=== PATIENT | female | born 1985 | race Caucasian/White ===

== ENCOUNTER 2017-01-18 21:56 | Emergency (ER) | payer OTHER ==
[~2017-01-18] VITALS: Ht 167.6 cm; Wt 104.3 kg
[2017-01-18] MEDS ORDERED: DULO30CA2 PO (22:20)
[2017-01-18] MEDS ORDERED: LORA1TAB PO (22:20)
[2017-01-18] MEDS ORDERED: VORT20TA PO (22:20)
[2017-01-18] MEDS ORDERED: MOME13HF IH (22:20)
[2017-01-19] MEDS ORDERED: IPRATROPIUM BROMIDE 0.5 MG/2.5 ML NEBU NEB ONE
[2017-01-19] MEDS ORDERED: methylPREDNISolone SOD SUCC 125 MG/2 ML VIAL IV ONE
[2017-01-19] MEDS ORDERED: ALBUTEROL SULFATE 2.5 MG/3 ML NEBU NEB ONE
[2017-01-19 00:21] LABS: CARBON DIOXIDE 28 mmol/L (21-32); CHLORIDE 104 mmol/L (98-107); CREATININE 1.1 mg/dL (0.6-1.3); GLUCOSE 101 mg/dL (74-106); POTASSIUM 3.9 mmol/L (3.5-5.1); UREA NITROGEN, BLOOD 15 mg/dL (7-18)
[2017-01-19] MEDS ORDERED: methylPREDNISolone SOD SUCC 125 MG/2 ML VIAL ONE (00:22)
[2017-01-19] MEDS ORDERED: IPRATROPIUM BROMIDE 0.5 MG/2.5 ML NEBU ONE (00:24)
[2017-01-19] MEDS ORDERED: ALBUTEROL SULFATE 2.5 MG/ 0.5 ML NEBU ONE (00:24)
[2017-01-19 00:25] LABS: BASOPHILS % (AUTO) 0.6 % (0.0-2.0); EOSINOPHILS # (AUTO) 0.2 K/uL (0.0-0.7); EOSINOPHILS % (AUTO) 2.8 % (0.0-7.0); HEMATOCRIT 38.3 % (37-47); HEMOGLOBIN 13.1 G/DL (12.0-16.0); LYMPHOCYTES # (AUTO) 2.7 K/UL (0.8-4.8); LYMPHOCYTES % (AUTO) 33.7 % (20.5-51.5); MEAN CORPUSCULAR HEMOGLOBIN 28.6 UUG (27.0-31.0); MEAN CORPUSCULAR HGB CONC 34 g/dL (32.0-37.0); MEAN CORPUSCULAR VOLUME 83.5 FL (81.0-99.0); MONOCYTES # (AUTO) 0.6 K/UL (0.1-1.30); MONOCYTES % (AUTO) 7.9 % (0.0-11.0); NEUTROPHILS # (AUTO) 4.5 K/UL (1.8-8.9); PLATELET COUNT (AUTO) 248 K/UL (150-450); RED BLOOD CELL COUNT(AUTO) 4.59 MIL/UL (4.2-5.4)
[2017-01-19 00:34] LABS: ALANINE AMINOTRANSFERASE 32 U/L (14-59); ALKALINE PHOSPHATASE 56 U/L (50-136); ASPARTATE AMINOTRANSFERASE 17 U/L (15-37); BILIRUBIN,DIRECT < 0.1 mg/dL (0.0-0.2); BILIRUBIN,TOTAL 0.2 mg/dL (0.2-1.0); TOTAL PROTEIN, SERUM 6.7 g/dL (6.4-8.2)
--- NOTE | 2017-01-19 01:34 | NUR ---
Patient discharged to home in stable conditon. Written and verbal after care instructions given. Patient verbalizes understanding of instructions.
== END 2017-01-19 01:35 | disposition home or self-care (01) ==
LOC: ER 21:57
DX: J45.909 Unspecified asthma, uncomplicated (principal); K21.9 Gastro-esophageal reflux disease without esophagitis; Z88.0 Allergy status to penicillin
CPT/HCPCS: 36415; 71010; 80048; 80076; 83880; 84484; 84703; 85025; 94640; 96374; 99285; A4663; J2930; J3590; 70030-TC

== ENCOUNTER 2017-01-24 22:30 | Inpatient (IN) | payer OTHER ==
[~2017-01-24] VITALS: Ht 167.6 cm; Wt 110.3 kg
[~2017-01-24 22:30] MED LIST: DULO30CA2 PO; LORA1TAB PO; MOME13HF IH; VORT20TA PO
--- NOTE | 2017-01-24 22:45 | NUR ---
PATIENT WALKED INTO ER. WITH C/O COUGH AND SOB. O2 SAT 97% ON RA. PATIENT IS ABLE TO SPEAK IN FULL SENTENCES. PATIENT ALBUTEROL INHALER AT HOME.
--- NOTE | 2017-01-24 23:09 | NUR ---
DR. LOBATO AT BEDSIDE FOR MSE.
[2017-01-24] MEDS ORDERED: IPRATROPIUM BROMIDE 0.5 MG/2.5 ML NEBU NEB ONE (23:15)
[2017-01-24] MEDS ORDERED: ALBUTEROL SULFATE 2.5 MG/3 ML NEBU NEB ONE (23:15)
[2017-01-24] MEDS ORDERED: methylPREDNISolone SOD SUCC 125 MG/2 ML VIAL IV ONE (23:15)
[2017-01-24] MEDS ORDERED: IV NORMAL SALINE 1000 ML BAG IV ONE (23:15)
[2017-01-24] MEDS ORDERED: IPRATROPIUM BROMIDE 0.5 MG/2.5 ML NEBU ONE (23:35)
[2017-01-24] MEDS ORDERED: ALBUTEROL SULFATE 2.5 MG/ 0.5 ML NEBU ONE (23:36)
[2017-01-24 23:42] LABS: BASOPHILS # (AUTO) 0.1 K/uL (0.0-8.0); BASOPHILS % (AUTO) 0.6 % (0.0-2.0); EOSINOPHILS % (AUTO) 0.1 % (0.0-7.0); HEMATOCRIT 39.4 % (37-47); HEMOGLOBIN 13.4 G/DL (12.0-16.0); LYMPHOCYTES # (AUTO) 2.2 K/UL (0.8-4.8); LYMPHOCYTES % (AUTO) 15.8 % (20.5-51.5); MEAN CORPUSCULAR HEMOGLOBIN 29.2 UUG (27.0-31.0); MEAN CORPUSCULAR HGB CONC 34 g/dL (32.0-37.0); MEAN CORPUSCULAR VOLUME 85.6 FL (81.0-99.0); MONOCYTES # (AUTO) 0.6 K/UL (0.1-1.30); MONOCYTES % (AUTO) 4.4 % (0.0-11.0); NEUTROPHILS # (AUTO) 10.9 K/UL (1.8-8.9); NEUTROPHILS % (AUTO) 79.1 % (38.5-71.5); PLATELET COUNT (AUTO) 276 K/UL (150-450); WHITE BLOOD COUNT (AUTO) 13.8 K/UL (4.0-11.2)
[2017-01-24 23:47] LABS: CREATININE 0.9 mg/dL (0.6-1.3); POTASSIUM 4.1 mmol/L (3.5-5.1)
[2017-01-24] MEDS ORDERED: methylPREDNISolone SOD SUCC 125 MG/2 ML VIAL ONE (23:47)
[2017-01-25] LABS: BILIRUBIN,DIRECT 0.1 mg/dL (0.0-0.2); BILIRUBIN,TOTAL 0.3 mg/dL (0.2-1.0); TOTAL PROTEIN, SERUM 6.9 g/dL (6.4-8.2)
[2017-01-25] MEDS ORDERED: ALBUTEROL SULFATE 2.5 MG/3 ML NEBU NEB ONE (00:15)
[2017-01-25] MEDS ORDERED: IPRATROPIUM BROMIDE 0.5 MG/2.5 ML NEBU NEB ONE (00:15)
[2017-01-25] MEDS ORDERED: ALBUTEROL SULFATE 2.5 MG/3 ML NEBU ONE ×2 (00:34→05:00)
[2017-01-25] MEDS ORDERED: ALBUTEROL SULFATE 2.5 MG/ 0.5 ML NEBU ONE (00:34)
[2017-01-25] MEDS ORDERED: IPRATROPIUM BROMIDE 0.5 MG/2.5 ML NEBU ONE ×2 (00:34→04:59)
[2017-01-25] MEDS ORDERED: Z GUARD REMEDY PASTE 57 GM TUBE TOP PRN (00:45)
[2017-01-25] MEDS ORDERED: MAGNESIUM HYDROXIDE 30 ML LIQUID UDC PO PRN (00:45)
[2017-01-25] MEDS ORDERED: AZITHROMYCIN 250 MG TABLET PO ONE (00:45)
[2017-01-25] MEDS ORDERED: ACETAMINOPHEN 325 MG TABLET PO PRN (00:45)
[2017-01-25] MEDS ORDERED: HYDROCODONE/APAP 5-325MG TABLET PO PRN (00:45)
[2017-01-25] MEDS ORDERED: ONDANSETRON 4 MG/2 ML VIAL IV PRN (00:45)
--- NOTE | 2017-01-25 01:24 | NUR ---
Pt. admitted to [facility] , under care of Dr. BARRIENTOS Belongs List completed.
[2017-01-25 01:40] VITALS: BP 136/82
--- NOTE | 2017-01-25 01:40 | NUR ---
received patient from ER via wheelchair. ushered patient safely to room. no acute distress noted. A&O x 4. ptnt c/o pain when coughing, slight sob. lungs sounds, wheezing. ambulatory. skin intact. vital signs stable. o2 sat is 97% in room air. belongings list completed. oriented patient to room. instructed patient to use call light when in need of assistance. acknowledged understanding. safety initiated. call light within reach. will continue to monitor.
[2017-01-25] MEDS ORDERED: AZITHROMYCIN 250 MG TABLET ONE (02:11)
[2017-01-25] MEDS: ALBUTEROL SULFATE 2.5 MG/3 ML NEBU NEB SCH ×6 (04:45→22:38)
[2017-01-25] MEDS: IPRATROPIUM BROMIDE 0.5 MG/2.5 ML NEBU NEB SCH ×6 (04:45→22:38)
--- NOTE | 2017-01-25 06:02 | NUR ---
NO CHANGES T/O SHIFT. SLEPT T/O SHIFT. NO C/O SOB. C/O PAIN WHEN COUGHING. BREATHING TX ORDERED. VITAL SIGNS STABLE. SAFETY AND COMFORT MEASURES MAINTAINED T/O SHIFT. ALL NEEDS MET.
[2017-01-25 06:33] VITALS: BP 119/63
--- NOTE | 2017-01-25 08:00 | NUR ---
AWAKE ALERT COOPERATE WELL NO SOB OR COUGHING AT THIS TIME RESTING WITH CALL LIGHT IN REACH HL IN PLACE RAC #20 PO FLD FELICIA WELL
[2017-01-25] MEDS: DULOXETINE 30 MG CAPSULE.DR PO SCH (08:30)
[2017-01-25] MEDS: methylPREDNISolone SOD SUCC 40 MG/ML VIAL IV SCH ×2 (08:31→17:49)
[2017-01-25 11:48] VITALS: BP 145/78
[2017-01-25 14:00] VITALS: BP 139/81
--- NOTE | 2017-01-25 14:30 | NUR ---
C/O OF ANXIETY /TREMOR OF HAND ATIVAN PO PRN GIVEN ORDER VS STABLE
[2017-01-25] MEDS: LORAZEPAM 1 MG TABLET PO PRN (14:32)
[2017-01-25 15:40] VITALS: BP 122/68
--- NOTE | 2017-01-25 18:00 | NUR ---
STABLE CONDITION NO ACUTE DISTRESS PAIN UNDER CONTROL SAFETY MEASURE PROVIDED CALL ASCENCIO IN REACH
[2017-01-25 19:30] VITALS: BP 141/83
--- NOTE | 2017-01-25 19:30 | NUR ---
RECEIVED SHIFT REPORT FROM NURSE IN PREVIOUS SHIFT. PATIENT IS IN STABLE CONDITION, NO SIGNS/SYMPTOMS OF DISTRESS. PATIENT JUST RECEIVED BREATHING TREATMENT. PATIENT DOES NOT PRESENT ANY CONGESTED COUGHING AT THIS TIME. NO PAIN EXPRESSED BY PATIENT. BED IN LOCKED/LOW POSITION WITH SIDE RAILS UP X2. ALERT/ORIENTED AND AMBULATORY. CALL LIGHT WITHIN REACH. SAFETY AND COMFORT WILL BE PROVIDED THROUGHOUT SHIFT.
[2017-01-25] MEDS ORDERED: TEMAZEPAM 15 MG CAPSULE PO PRN (21:15)
[2017-01-25] MEDS ORDERED: ALBUTEROL SULFATE 2.5 MG/ 0.5 ML NEBU NEB PRN (23:15)
[2017-01-26] MEDS: IPRATROPIUM BROMIDE 0.5 MG/2.5 ML NEBU NEB SCH ×2 (02:40→07:52)
[2017-01-26 05:04] VITALS: BP 124/73
--- NOTE | 2017-01-26 06:26 | NUR ---
PATIENT SLEPT WELL THROUGHOUT THE NIGHT. SLEEP MEDICATION THAT WAS REQUESTED BY PATIENT AND ORDERED BY DOCTOR WAS NOT REQUESTED BY PATIENT. PATIENT IN STABLE CONDITION, NO S/S DISTRESS. VSS. BED IN LOCKED/LOW POSITION, SIDE RAILS UP, CALL LIGHT WITHIN REACH. SAFETY AND COMFORT PROVIDED THROUGHOUT SHIFT.
[2017-01-26 06:39] LABS: BASOPHILS % (AUTO) 0.2 % (0.0-2.0); HEMATOCRIT 39.7 % (37-47); HEMOGLOBIN 13.3 G/DL (12.0-16.0); LYMPHOCYTES # (AUTO) 1.5 K/UL (0.8-4.8); LYMPHOCYTES % (AUTO) 7.8 % (20.5-51.5); MEAN CORPUSCULAR HEMOGLOBIN 28.5 UUG (27.0-31.0); MEAN CORPUSCULAR HGB CONC 33 g/dL (32.0-37.0); MEAN CORPUSCULAR VOLUME 85.3 FL (81.0-99.0); MONOCYTES # (AUTO) 0.8 K/UL (0.1-1.30); MONOCYTES % (AUTO) 4.1 % (0.0-11.0); NEUTROPHILS % (AUTO) 87.9 % (38.5-71.5); PLATELET COUNT (AUTO) 270 K/UL (150-450); RED BLOOD CELL COUNT(AUTO) 4.66 MIL/UL (4.2-5.4); WHITE BLOOD COUNT (AUTO) 19.3 K/UL (4.0-11.2)
[2017-01-26 07:06] LABS: CREATININE 0.7 mg/dL (0.6-1.3); MAGNESIUM 2.1 mg/dL (1.8-2.4); POTASSIUM 4.1 mmol/L (3.5-5.1)
--- NOTE | 2017-01-26 08:00 | NUR ---
AWAKE COOPERATE NO SOB OR PAIN RESTING IN BED WITH CALL LIGHT IN REACH INSTRUCTION TO CALL WHEN NEEDED
[2017-01-26] MEDS ORDERED: FAMOTIDINE 20 MG TABLET PO SCH (09:00)
[2017-01-26] MEDS ORDERED: methylPREDNISolone SOD SUCC 40 MG/ML VIAL IV SCH (09:00)
[2017-01-26] MEDS ORDERED: AZITHROMYCIN 250 MG TABLET PO SCH (09:00)
[2017-01-26] MEDS: DULOXETINE 30 MG CAPSULE.DR PO SCH (09:41)
[2017-01-26] MEDS ORDERED: VORTIOXETINE 20 MG PO SCH (11:00)
[2017-01-26 11:06] VITALS: BP 127/84
[2017-01-26] MEDS: ALBUTEROL SULFATE 2.5 MG/ 0.5 ML NEBU NEB PRN ×3 (11:15→18:36)
--- NOTE | 2017-01-26 12:00 | NUR ---
DR HOOK AND DR MALCOLM SEE PATIENT TODAY NO NEW ORDER
[2017-01-26] MEDS: LORAZEPAM 1 MG TABLET PO PRN (13:42)
[2017-01-26] MEDS ORDERED: METH4TAB3 PO (14:42)
[2017-01-26] MEDS ORDERED: AZIT250T6 PO (14:42)
[2017-01-26] MEDS ORDERED: HYDR-3326 PO (14:42)
--- NOTE | 2017-01-26 15:00 | NUR ---
OK TO D/C HOME TODAY PRECRIPTION GIVEN TO PATIENT AND PHAMACY EXPLAINED ALL HOME MEDICINE PRIOR D/C HOME TODAY REMIND TO F/U WITH OWN PMD / AND CONTINUE HOME MEDICINE ORDER ,VERBALIZES UNDERSTAND AND SIGNS D/C SHEET HL DISCONTINUE PRIOR D/C HOME EDUCATION PK GIVEN
[2017-01-26 15:41] VITALS: BP 135/79
--- NOTE | 2017-01-26 17:00 | NUR ---
STABLE CONDITION NO ACUTE DISTRESS NO SOB PAIN UNDER CONTROL SAFETY MEASURE PROVIDED CALL ASCENCIO IN REACH
--- NOTE | 2017-01-26 19:30 | NUR ---
RECEIVED PT IN BED, ASLEEP. BREATHING UNLABORED. IN NO ACUTE SIGNS OF DISTRESS. TO BE DISCHARGED HOME.
--- NOTE | 2017-01-26 20:11 | NUR ---
LEFT ON STABLE CONDITION. ESCORTED BY VARNISH FINISHER TO THE LOBBY.
== END 2017-01-26 19:00 | disposition home or self-care (01) | DRG 144 ==
LOC: ER 22:30 → MED 01-25 01:13
PROVIDERS: ADMIT Family Medicine; ATTEND Family Medicine
DX: J20.8 Acute bronchitis due to other specified organisms (principal); J45.901 Unspecified asthma with (acute) exacerbation; E66.01 Morbid (severe) obesity due to excess calories; E78.5 Hyperlipidemia, unspecified; K21.9 Gastro-esophageal reflux disease without esophagitis; R73.9 Hyperglycemia, unspecified; Z68.39 Body mass index [BMI] 39.0-39.9, adult
CPT/HCPCS: 36415; 70030-TC; 71010; 83605; 83735; 84100; 85025; 87040; 87070; 94640; 94664; A4663; J2920; J2930; J3590; J7030; Q0144

== ENCOUNTER 2017-03-08 21:56 | Emergency (ER) | payer OTHER ==
[~2017-03-08] VITALS: Ht 167.6 cm; Wt 102.1 kg
[~2017-03-08 21:56] MED LIST changes: +AZIT250T6 PO; +HYDR-3326 PO; +METH4TAB3 PO
--- NOTE | 2017-03-08 23:02 | NUR ---
RECEIIVED PT [id number], AMBULATORY, IN NO DISTRESS,PT HERE TO MED REFILL, DENIES SI, PLACEDIN BED, BED IN LOWEST POSITION, LOCKED, HOB UP, SR UP X2 FOR SAFETY, CB WITHIN REACH, WILL CONTINUE WITH POC
[2017-03-08 23:28] VITALS: BP 142/56
--- NOTE | 2017-03-08 23:30 | NUR ---
PT IN NO DISTRESS, PT ADVISED TO F/U WITH PMD OR RTURN TO ER FOR WORSENING OF SYMPTOMS, VERBALIZES UNDERSTANDING, RX GIVEN TO PT
== END 2017-03-08 23:37 | disposition home or self-care (01) ==
LOC: ER 21:57
DX: Z76.0 Encounter for issue of repeat prescription (principal); F32.9 Major depressive disorder, single episode, unspecified; F41.9 Anxiety disorder, unspecified; J45.909 Unspecified asthma, uncomplicated; K21.9 Gastro-esophageal reflux disease without esophagitis; Z88.0 Allergy status to penicillin
CPT/HCPCS: A4663

== ENCOUNTER 2017-05-07 02:05 | Emergency (ER) | payer OTHER ==
[~2017-05-07] VITALS: Ht 167.6 cm; Wt 111.1 kg
[~2017-05-07 02:05] MED LIST changes: +AZIT250T13 PO; -AZIT250T6 PO
[2017-05-07] MEDS ORDERED: SULFAMETH/TRIMETH 800/160 MG TABLET PO ONE (02:45)
[2017-05-07] MEDS ORDERED: TDAP DIPH,PERTUSS,TET VAC/PF 0.5 ML DISP.SYRIN IM ONE ×2 (02:45→03:00)
--- NOTE | 2017-05-07 02:51 | NUR ---
Patient discharged to home in stable conditon. Written and verbal after care instructions given. Patient verbalizes understanding of instructions. Instructed patient to return in 3 days if symptoms don't improve. Patient ambulated out of ER with steady gait. All belongings with patient.
[2017-05-07 02:53] VITALS: BP 152/74
[2017-05-07] MEDS ORDERED: SULFAMETH/TRIMETH 800/160 MG TABLET ONE (02:59)
== END 2017-05-07 02:54 | disposition home or self-care (01) ==
LOC: ER 02:13
DX: S51.811A Laceration without foreign body of right forearm, initial encounter (principal); Z23 Encounter for immunization; K21.9 Gastro-esophageal reflux disease without esophagitis; J45.909 Unspecified asthma, uncomplicated; Z88.0 Allergy status to penicillin; X58.XXXA Exposure to other specified factors, initial encounter; Y93.89 Activity, other specified; Y92.89 Other specified places as the place of occurrence of the external cause; Y99.8 Other external cause status
CPT/HCPCS: 90715; A4663

== ENCOUNTER 2018-12-20 15:33 | Inpatient (IN) | payer OTHER ==
[~2018-12-20] VITALS: Ht 167.6 cm; Wt 117.5 kg
[2018-12-20] MEDS ORDERED: ASPI-612 PO (20:34)
[2018-12-20] MEDS ORDERED: BACI3.5O23 TP (20:34)
[2018-12-20] MEDS ORDERED: OXYC10SY PO (20:34)
[2018-12-20] MEDS ORDERED: MOME13HF IH (20:34)
[2018-12-20] MEDS ORDERED: DOCU100C36 PO (20:34)
[2018-12-20] MEDS ORDERED: CYAN-51 PO (20:34)
[2018-12-20] MEDS ORDERED: METH500T6 PO (20:34)
[2018-12-20] MEDS ORDERED: LEVE500T9 PO (20:34)
[2018-12-20] MEDS ORDERED: ONDA4TAB11 PO (20:34)
[2018-12-20] MEDS ORDERED: ALBU8HFA4 INH (20:34)
[2018-12-20] MEDS ORDERED: OMEG-49 PO (20:34)
[2018-12-20] MEDS ORDERED: CHOL10002 PO (20:34)
[2018-12-20 20:37] VITALS: BP 126/75
[2018-12-20] MEDS ORDERED: ONDANSETRON ODT 4 MG TAB.RAPDIS SL PRN (21:15)
[2018-12-20] MEDS ORDERED: ALBUTEROL SULFATE 2.5 MG/3 ML NEBU NEB PRN (21:15)
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
[2018-12-20] MEDS: OXYCODONE HCL 5 MG TABLET PO PRN (22:46)
[2018-12-21] MEDS: OXYCODONE HCL 5 MG TABLET PO PRN ×4 (03:02→15:28)
[2018-12-21 04:52] VITALS: BP 117/64
[2018-12-21] MEDS: ACETAMINOPHEN 325 MG TABLET PO PRN ×3 (05:51→23:55)
--- NOTE | 2018-12-21 05:59 | NUR ---
PATIENT IS NOT SLEEPING WELL THROUGH OUT THE NIGHT D/T PAIN. PAIN MEDICATIONS- OXY ADMINISTERED Q4 PRN FOR PAIN MX. ACETAMINOPHEN 650 MG PRN ADMINISTERED AROUND 05:50 PM, NEXT OXYCODONE PO DUE AT 7 AM. NON PHARMACOLOGICAL PAIN MX DONE THROUGH THE SHIFT. REPOSITION PAIN Q2, ICE PACK APPLIED. V/S STABLE. NO SOB, SAFETY PRECAUTIONS MEASURED, ROUTINE ROOM CHECK DONE, CALL LIGHT IN REACH. WILL CONTINUE SAME PLAN OF CARE.
[2018-12-21 07:01] LABS: BASOPHILS % (AUTO) 0.6 % (0.0-2.0); EOSINOPHILS # (AUTO) 0.2 K/uL (0.0-0.7); EOSINOPHILS % (AUTO) 2.2 % (0.0-7.0); HEMATOCRIT 27.1 % (31.2-41.9); HEMOGLOBIN 9.5 g/dL (10.9-14.3); LYMPHOCYTES # (AUTO) 1.6 K/uL (20.0-40.0); LYMPHOCYTES % (AUTO) 20.1 % (20.5-51.5); MEAN CORPUSCULAR HEMOGLOBIN 30.5 uug (24.7-32.8); MEAN CORPUSCULAR HGB CONC 35 g/dL (32.3-35.6); MEAN CORPUSCULAR VOLUME 86.4 fL (75.5-95.3); MONOCYTES # (AUTO) 0.5 K/uL (2.0-10.0); MONOCYTES % (AUTO) 5.8 % (0.0-11.0); NEUTROPHILS # (AUTO) 5.8 K/uL (1.8-8.9); NEUTROPHILS % (AUTO) 71.3 % (38.5-71.5); PLATELET COUNT (AUTO) 245 K/uL (179-408); RED BLOOD CELL COUNT(AUTO) 3.13 MIL/uL (3.63-4.92); WHITE BLOOD COUNT (AUTO) 8.1 K/uL (3.8-11.8)
[2018-12-21] MEDS ORDERED: OXYCODONE HCL 5 MG TABLET PO PRN (07:15)
[2018-12-21 07:30] LABS: BILIRUBIN,TOTAL 0.6 mg/dL (0.2-1.0); CREATININE 0.6 mg/dL (0.6-1.3); MAGNESIUM 1.9 mg/dL (1.8-2.4); PHOSPHOROUS 4.2 mg/dL (2.5-4.9); POTASSIUM 4.2 mmol/L (3.5-5.1); TOTAL PROTEIN, SERUM 5.9 g/dL (6.4-8.2)
[2018-12-21 07:53] LABS: THYROID STIMULATING HORMONE 2.337 mIU/mL (0.358-3.740)
[2018-12-21] MEDS: FEXOFENADINE HCL 180 MG TABLET PO SCH (08:38)
[2018-12-21] MEDS: OMEGA-3 FATTY ACIDS/FISH OIL CAPSULE PO SCH (08:38)
[2018-12-21] MEDS: DOCUSATE SODIUM 100 MG CAPSULE PO SCH ×2 (08:38→16:42)
[2018-12-21] MEDS: LEVETIRACETAM 500 MG TABLET PO SCH ×2 (08:38→20:38)
[2018-12-21] MEDS: FAMOTIDINE 20 MG TABLET PO SCH (08:38)
[2018-12-21] MEDS: CYANOCOBALAMIN 1,000 MCG TABLET PO SCH (08:39)
[2018-12-21] MEDS: CHOLECALCIFEROL 1,000 UNIT TABLET PO SCH (08:40)
[2018-12-21] MEDS: ASPIRIN 325 MG TABLET PO SCH (08:41)
[2018-12-21] MEDS ORDERED: BACITRACIN OPHT OINT 3.5 GM TUBE EACHEYE SCH (09:00)
[2018-12-21] MEDS ORDERED: Medication Not On Formulary EA (Omega-3/Dha/Epa/Fish Oil (Fish Oil 1,000 Mg Softgel) 1 E PO SCH (09:00)
[2018-12-21] MEDS: FLUTICASONE/VILANTEROL 1 EACH BLST.W.DEV INH SCH (09:00)
[2018-12-21 09:34] VITALS: BP 120/61
[2018-12-21] MEDS: BACITRACIN ZINC OINT 15 GM TUBE TOP SCH ×2 (11:30→16:42)
--- NOTE | 2018-12-21 13:34 | NUR ---
WOUND CARE CONSULT: PT PRESENTS WITH DRY ABRASIONS, BRUISING, HEALING ABRASION TO RT KNEE AREA AND TO LEFT ARM, AND SURGICAL SITES FROM ORTHO SURGERY, PRESENT ON ADMISSION. PT IS CONTINENT AT THIS TIME AND IS INDEPENDENT WITH BED MOBILITY. RECOMMENDATIONS MADE FOR SKIN PROTECTION AND WOUND CARE. DISCUSSED WITH NURSING STAFF. DEFER TO ORTHO FOR SURGICAL SITES. SURGICAL DRESSINGS ARE DRY AND INTACT. PT TO FOLLOW UP WITH ORTHO SURGEON. WILL SEE PRN. CHESTER IN AGREEMENT WITH PLAN OF CARE. Addendum: 12/21/18 at 1337 by SEVERIANO CORTES RN Amended: Links added.
[2018-12-21 16:35] VITALS: BP 143/77
--- NOTE | 2018-12-21 18:29 | NUR ---
Patient in bed awake, A&O x 4 able to express needs. IN No acute distress. Vital signs taken and stable for patient. All due medications administered as ordered and scheduled. PRN pain medication of OXY IR 10mg PO PRN administered as ordered for pain of right knee and effective. Pt. noted with original dressing on right knee, no discharge noted. Dry and intact. Left arm skin treatment done as ordered and covered with dressing; intact and dry with no discharge noted. Patient visited by wound care nurse. Pt. is on PT services. Needs attended, safety measures in place, call light left at bed side and will continue with care.
--- NOTE | 2018-12-21 19:45 | NUR ---
Awake, in bed, complaint of tolerable pain at this time. Mother at bedside. Safety measure and fall precaution maintained. Continue care as planned.
[2018-12-21] MEDS: Z GUARD REMEDY PASTE 57 GM TUBE TOP SCH (20:38)
[2018-12-21] MEDS: OXYCODONE HCL 20 MG TAB.SR.12H PO SCH (20:38)
[2018-12-21 21:06] VITALS: BP 124/60
[2018-12-22] MEDS: OXYCODONE HCL 5 MG TABLET PO PRN ×3 (02:57→18:28)
[2018-12-22 05:07] VITALS: BP 103/55
--- NOTE | 2018-12-22 06:23 | NUR ---
Shift End Report: VS stable. Quite needy and demanding. Constantly calling. All needs attended and met. Medicated twice for pain with help. Cold compress applied to right knee to relieve pain/discomforts tolerated good. One person assist to the bathroom. No fall/injury reported. No significant event reported all night. Continue current rehab plan of care..
[2018-12-22] MEDS: CYANOCOBALAMIN 1,000 MCG TABLET PO SCH (08:35)
[2018-12-22] MEDS: ASPIRIN 325 MG TABLET PO SCH (08:36)
[2018-12-22] MEDS: OMEGA-3 FATTY ACIDS/FISH OIL CAPSULE PO SCH (08:36)
[2018-12-22] MEDS: CHOLECALCIFEROL 1,000 UNIT TABLET PO SCH (08:38)
[2018-12-22] MEDS: DOCUSATE SODIUM 100 MG CAPSULE PO SCH ×2 (08:39→17:36)
[2018-12-22] MEDS: FAMOTIDINE 20 MG TABLET PO SCH (08:39)
[2018-12-22] MEDS: FEXOFENADINE HCL 180 MG TABLET PO SCH (08:39)
[2018-12-22] MEDS: OXYCODONE HCL 20 MG TAB.SR.12H PO SCH ×2 (08:41→20:32)
[2018-12-22] MEDS: LEVETIRACETAM 500 MG TABLET PO SCH ×2 (08:41→20:32)
[2018-12-22] MEDS: FLUTICASONE/VILANTEROL 1 EACH BLST.W.DEV INH SCH ×2 (08:42→09:00)
[2018-12-22 08:47] VITALS: BP 102/56
[2018-12-22] MEDS: BACITRACIN ZINC OINT 15 GM TUBE TOP SCH ×2 (08:49→17:36)
[2018-12-22] MEDS: Z GUARD REMEDY PASTE 57 GM TUBE TOP PRN (08:51)
[2018-12-22] MEDS: Z GUARD REMEDY PASTE 57 GM TUBE TOP SCH ×2 (09:02→20:32)
[2018-12-22 17:12] VITALS: BP 125/70
--- NOTE | 2018-12-22 19:30 | NUR ---
Patient received in bed. Alert and oriented x 4. Family at bedside. No C/O sob or distress at this time. 8/10 pain stated at time of assessment. Will medicate for pain when able. Multiple bruises and wounds noted. 2+ pitting edema in right ankle. Ice on right leg. Side rails up bilaterally for safety. Call light and frequently used items within reach. Will continue to monitor.
--- NOTE | 2018-12-22 20:02 | NUR ---
Patient is A&O x 4, able to express needs. No acute distress noted. Skin warm and dry to touch. VS taken and stable. Due medications administered as ordered and scheduled. PRN pain medication of OXY IR 10mg PO PRN administered as ordered for pain of right knee and generalized pain. Pt. still noted with severral discoloration on body. Left hand wound treatment done during shift. Patient noted with soiled dressing after taking shower on right knee, reinforced dry dressing; No drainage, odor or bleeding noted. NO complains of pain at this time. All other wound dressings intact and dry. Needs met, safety measures in place, call light left at bed side. End of shift report given and will continue with care.
[2018-12-22] MEDS ORDERED: PATIENT MAY USE OWN MED- MD OK INH SCH (21:00)
[2018-12-22 21:45] VITALS: BP 120/57
[2018-12-22] MEDS: ACETAMINOPHEN 325 MG TABLET PO PRN (23:27)
[2018-12-23 06:03] VITALS: BP 96/52
[2018-12-23] MEDS: OXYCODONE HCL 5 MG TABLET PO PRN ×2 (06:08→14:11)
[2018-12-23 07:15] VITALS: BP 112/62
[2018-12-23] MEDS: FEXOFENADINE HCL 180 MG TABLET PO SCH (08:18)
[2018-12-23] MEDS: LEVETIRACETAM 500 MG TABLET PO SCH ×2 (08:18→21:08)
[2018-12-23] MEDS: CHOLECALCIFEROL 1,000 UNIT TABLET PO SCH (08:18)
[2018-12-23] MEDS: FAMOTIDINE 20 MG TABLET PO SCH (08:18)
[2018-12-23] MEDS: ASPIRIN 325 MG TABLET PO SCH (08:18)
[2018-12-23] MEDS: DOCUSATE SODIUM 100 MG CAPSULE PO SCH ×2 (08:18→17:17)
[2018-12-23] MEDS: OXYCODONE HCL 20 MG TAB.SR.12H PO SCH ×2 (08:19→21:11)
[2018-12-23] MEDS: OMEGA-3 FATTY ACIDS/FISH OIL CAPSULE PO SCH (08:19)
[2018-12-23] MEDS: FLUTICASONE/VILANTEROL 1 EACH BLST.W.DEV INH SCH (08:20)
[2018-12-23] MEDS: CYANOCOBALAMIN 1,000 MCG TABLET PO SCH (08:20)
[2018-12-23] MEDS: Z GUARD REMEDY PASTE 57 GM TUBE TOP SCH ×2 (08:21→21:14)
[2018-12-23] MEDS: BACITRACIN ZINC OINT 15 GM TUBE TOP SCH ×2 (08:21→17:17)
--- NOTE | 2018-12-23 09:48 | NUR ---
INDIVIDUALIZE PLAN OF CARE
--- NOTE | 2018-12-23 11:19 | NUR ---
INTERDISCIPLINARY TEAM CONFERENCE
--- NOTE | 2018-12-23 13:38 | NUR ---
WOUND CARE FOLLOW UP: PT SEEN FOR RE-EVALUATION OF LEFT ARM ABRASIONS ON REQUEST OF NURSING STAFF AND PT. ABRASIONS HEALING WELL AND PT REQUESTS DC OF XEROFORM DSG. RECOMMENDATIONS MADE FOR WOUND CARE AND SKIN PROTECTION. DISCUSSED WITH NURSING STAFF. WILL SEE PRN. CHESTER IN AGREEMENT WITH PLAN OF CARE. Addendum: 12/23/18 at 1340 by SEVERIANO CORTES RN Amended: Links added.
[2018-12-23] MEDS: ACETAMINOPHEN 325 MG TABLET PO PRN ×2 (13:49→23:59)
[2018-12-23 16:17] VITALS: BP 108/64
--- NOTE | 2018-12-23 17:52 | NUR ---
Patient continue therapy for ambulation and unsteady gait. Continue pain management prior to therapy and if needed. Complaint of right tibia swelling and pain. x-ray done with fracture result noted. MD aware. dressing change done. refuse to apply xeroform in the left arm wound. cleanse and applied bacitracin ointment, covered with surgical wound. healing well. Seen by wound nurse. will continue monitor
[2018-12-23 20:18] VITALS: BP 120/71
[2018-12-23] MEDS: Z GUARD REMEDY PASTE 57 GM TUBE TOP PRN (21:14)
[2018-12-23] MEDS: METHOCARBAMOL 500 MG TABLET PO PRN (22:10)
--- NOTE | 2018-12-24 03:25 | NUR ---
Patient received in bed, AAO x4, mother at bedside. Not in acute distress or SOB. C/O pain, scheduled and PRN Pain medication given as ordered, offers relief. Dressing to Left arm skin issue changed upon patient's request. Tolerated well. Safety measures maintained. Bed in low and lock position, alarm on, side rails up x2 for safety. Educated patient to use call light. Call light and frequently used items within reach. Will endorse to the AM shift nurse for continuity of care.
[2018-12-24] MEDS: OXYCODONE HCL 5 MG TABLET PO PRN ×2 (06:00→14:07)
[2018-12-24 06:16] VITALS: BP 113/64
[2018-12-24 08:00] VITALS: BP 108/65
[2018-12-24] MEDS: OMEGA-3 FATTY ACIDS/FISH OIL CAPSULE PO SCH (09:30)
[2018-12-24] MEDS: DOCUSATE SODIUM 100 MG CAPSULE PO SCH ×2 (09:30→16:07)
[2018-12-24] MEDS: FLUTICASONE/VILANTEROL 1 EACH BLST.W.DEV INH SCH (09:30)
[2018-12-24] MEDS: CHOLECALCIFEROL 1,000 UNIT TABLET PO SCH (09:31)
[2018-12-24] MEDS: FEXOFENADINE HCL 180 MG TABLET PO SCH (09:31)
[2018-12-24] MEDS: LEVETIRACETAM 500 MG TABLET PO SCH ×2 (09:31→21:26)
[2018-12-24] MEDS: CYANOCOBALAMIN 1,000 MCG TABLET PO SCH (09:31)
[2018-12-24] MEDS: Z GUARD REMEDY PASTE 57 GM TUBE TOP PRN (09:34)
[2018-12-24] MEDS: OXYCODONE HCL 20 MG TAB.SR.12H PO SCH ×2 (09:35→21:26)
[2018-12-24] MEDS: ASPIRIN 325 MG TABLET PO SCH (09:36)
[2018-12-24] MEDS: FAMOTIDINE 20 MG TABLET PO SCH (09:41)
[2018-12-24] MEDS: BACITRACIN ZINC OINT 15 GM TUBE TOP SCH ×2 (09:42→16:07)
[2018-12-24] MEDS: Z GUARD REMEDY PASTE 57 GM TUBE TOP SCH ×2 (09:51→20:35)
[2018-12-24 17:21] VITALS: BP 120/75
--- NOTE | 2018-12-24 19:30 | NUR ---
Patient received in bed. Alert and oriented x 4. Family at bedside. No C/O SOB or distress at this time. 8/10 pain stated at time of assessment. Patient requesting Tylenol. Ice in two places in right leg. Side rails up bilaterally for safety. Call light and frequently used items within reach. Will continue to monitor.
[2018-12-24] MEDS: ACETAMINOPHEN 325 MG TABLET PO PRN (20:34)
[2018-12-24 20:49] VITALS: BP 114/63
[2018-12-25 00:40] VITALS: BP 113/63
[2018-12-25] MEDS: OXYCODONE HCL 5 MG TABLET PO PRN (06:46)
[2018-12-25 08:00] VITALS: BP 114/54
[2018-12-25] MEDS: METHOCARBAMOL 500 MG TABLET PO PRN ×2 (08:02→22:58)
[2018-12-25] MEDS: DOCUSATE SODIUM 100 MG CAPSULE PO SCH ×2 (09:22→16:59)
[2018-12-25] MEDS: OMEGA-3 FATTY ACIDS/FISH OIL CAPSULE PO SCH (09:22)
[2018-12-25] MEDS: CHOLECALCIFEROL 1,000 UNIT TABLET PO SCH (09:22)
[2018-12-25] MEDS: FEXOFENADINE HCL 180 MG TABLET PO SCH (09:22)
[2018-12-25] MEDS: FAMOTIDINE 20 MG TABLET PO SCH (09:22)
[2018-12-25] MEDS: LEVETIRACETAM 500 MG TABLET PO SCH ×2 (09:23→21:33)
[2018-12-25] MEDS: CYANOCOBALAMIN 1,000 MCG TABLET PO SCH (09:23)
[2018-12-25] MEDS: ASPIRIN 325 MG TABLET PO SCH (09:23)
[2018-12-25] MEDS: FLUTICASONE/VILANTEROL 1 EACH BLST.W.DEV INH SCH (09:24)
[2018-12-25] MEDS: OXYCODONE HCL 20 MG TAB.SR.12H PO SCH ×2 (09:24→21:34)
[2018-12-25] MEDS: BACITRACIN ZINC OINT 15 GM TUBE TOP SCH ×2 (09:25→16:59)
[2018-12-25] MEDS: Z GUARD REMEDY PASTE 57 GM TUBE TOP SCH ×2 (09:26→21:34)
--- NOTE | 2018-12-25 09:45 | NUR ---
Patient noted resting in bed, complaints of pain in right leg, prn Oxy given by casino shift manager nurse, patient agrees to take Robaxin in the mean time, no signs of distress noted, call light in reach, bed locked and in lowest position, all needs met
[2018-12-25] MEDS: ACETAMINOPHEN 325 MG TABLET PO PRN (16:59)
--- NOTE | 2018-12-25 19:13 | NUR ---
Patient received in bed. Alert and oriented x 4. No C/O SOB or distress at this time. 7/10 pain stated at time of assessment. Patient requesting pain medication when available. Ice in two places on right leg. Side rails up bilaterally for safety. Call light and frequently used items within reach. Will continue to monitor.
[2018-12-25 20:24] VITALS: BP 128/62
[2018-12-26 05:05] VITALS: BP 108/61
[2018-12-26] MEDS: OXYCODONE HCL 5 MG TABLET PO PRN ×3 (06:59→17:42)
[2018-12-26] MEDS: FEXOFENADINE HCL 180 MG TABLET PO SCH (09:04)
[2018-12-26] MEDS: OXYCODONE HCL 20 MG TAB.SR.12H PO SCH ×2 (09:04→20:59)
[2018-12-26] MEDS: OMEGA-3 FATTY ACIDS/FISH OIL CAPSULE PO SCH (09:04)
[2018-12-26] MEDS: FLUTICASONE/VILANTEROL 1 EACH BLST.W.DEV INH SCH (09:05)
[2018-12-26] MEDS: FAMOTIDINE 20 MG TABLET PO SCH (09:05)
[2018-12-26] MEDS: CYANOCOBALAMIN 1,000 MCG TABLET PO SCH (09:05)
[2018-12-26] MEDS: DOCUSATE SODIUM 100 MG CAPSULE PO SCH ×2 (09:05→17:25)
[2018-12-26] MEDS: CHOLECALCIFEROL 1,000 UNIT TABLET PO SCH (09:05)
[2018-12-26] MEDS: LEVETIRACETAM 500 MG TABLET PO SCH ×2 (09:05→21:00)
[2018-12-26] MEDS: ASPIRIN 325 MG TABLET PO SCH (09:05)
[2018-12-26] MEDS: METHOCARBAMOL 500 MG TABLET PO PRN ×2 (09:08→23:16)
[2018-12-26] MEDS: BACITRACIN ZINC OINT 15 GM TUBE TOP SCH ×2 (09:18→17:25)
[2018-12-26] MEDS: Z GUARD REMEDY PASTE 57 GM TUBE TOP SCH ×2 (09:18→21:00)
[2018-12-26 09:23] VITALS: BP 108/62
--- NOTE | 2018-12-26 09:32 | NUR ---
Patient noted crying this morning because of left leg pain, given scheduled pain medication, no signs of distress noted, call light in reach, bed locked and in lowest, all needs met at this time
[2018-12-26 16:46] VITALS: BP 121/79
--- NOTE | 2018-12-26 19:40 | NUR ---
Patient received in bed, AAO x4. Not in acute distress or SOB. Able to make needs known. Family at the bedside. On room air. VS stable. Pain assessed. Complained of pain on the right knee. She rates the pain 8/10 in numeric scale. Pain assessed. Fall prevention observed. Safety measures maintained. Bed in low and lock position, alarm on, side rails up x2 for safety. Call light and frequently used items within reach. Continue to monitor.
[2018-12-26 19:46] VITALS: BP 111/59
[2018-12-26] MEDS: ACETAMINOPHEN 325 MG TABLET PO PRN (20:38)
--- NOTE | 2018-12-27 04:38 | NUR ---
Patient was stable during the shift and had a good sleep last night. Not in acute distress or SOB. On room air. VS stable. Pain assessed and reassessed after pain medication. All due medications given and well tolerated. Asked for Tylenol @2030. Provided ice bags for her pain. Assisted her to the bathroom as needed. All needs attended promptly. Physical assessment done. Fall prevention observed. Safety measures maintained. Bed in low and lock position, alarm on, side rails up x2 for safety. Call light and frequently used items within reach. Continue to monitor and will endorse to the day shift nurse accordingly.
[2018-12-27] MEDS: OXYCODONE HCL 5 MG TABLET PO PRN ×3 (06:00→18:22)
[2018-12-27 06:01] VITALS: BP 110/73
[2018-12-27] MEDS: FLUTICASONE/VILANTEROL 1 EACH BLST.W.DEV INH SCH (09:22)
[2018-12-27] MEDS: CHOLECALCIFEROL 1,000 UNIT TABLET PO SCH (09:23)
[2018-12-27] MEDS: FAMOTIDINE 20 MG TABLET PO SCH (09:23)
[2018-12-27] MEDS: DOCUSATE SODIUM 100 MG CAPSULE PO SCH ×2 (09:23→17:08)
[2018-12-27] MEDS: OMEGA-3 FATTY ACIDS/FISH OIL CAPSULE PO SCH (09:24)
[2018-12-27] MEDS: OXYCODONE HCL 20 MG TAB.SR.12H PO SCH ×2 (09:24→21:26)
[2018-12-27] MEDS: ASPIRIN 325 MG TABLET PO SCH (09:24)
[2018-12-27] MEDS: FEXOFENADINE HCL 180 MG TABLET PO SCH (09:24)
[2018-12-27] MEDS: LEVETIRACETAM 500 MG TABLET PO SCH ×2 (09:25→21:25)
[2018-12-27] MEDS: BACITRACIN ZINC OINT 15 GM TUBE TOP SCH ×2 (09:26→17:08)
[2018-12-27] MEDS: CYANOCOBALAMIN 1,000 MCG TABLET PO SCH (09:26)
[2018-12-27] MEDS: Z GUARD REMEDY PASTE 57 GM TUBE TOP SCH ×2 (09:27→21:25)
--- NOTE | 2018-12-27 13:38 | NUR ---
Pt received resting in bed. Pt assessed, no acute distress or SOB noted. Pt compliant with routine morning medications and therapies as scheduled. PRN pain medication administered for 8/10 pain, following therapy, ice and repositioning applied. Wound and skin care provided as ordered. kPt able to make needs known. Friends visiting at the bedside at this time. Bed in locked and lowest position with side rails up x2 and alarm on. Fall and safety precautions maintained. Personal items and call light placed within reach. Will continue to monitor.
[2018-12-27 16:04] VITALS: BP 124/81
[2018-12-27] MEDS: ACETAMINOPHEN 325 MG TABLET PO PRN (17:12)
[2018-12-27 20:49] VITALS: BP 115/66
[2018-12-27] MEDS: METHOCARBAMOL 500 MG TABLET PO PRN (23:06)
--- NOTE | 2018-12-27 23:16 | NUR ---
Patient received in bed. Alert and oriented x 4. Family at bedside. No C/O excessive pain in body at this time. Waiting for 2100 dose of Oxycontin 20 at this time. Dressing removed, and bruises and surgical incisions photographed for weekly charting. Side rails up bilaterally for safety. Call light and frequently used items within reach. Will continue to monitor.
[2018-12-28 04:30] VITALS: BP 123/78
[2018-12-28] MEDS: OXYCODONE HCL 5 MG TABLET PO PRN ×2 (05:43→14:41)
[2018-12-28 06:11] VITALS: BP 123/78
[2018-12-28 07:30] VITALS: BP 108/60
[2018-12-28] MEDS: FLUTICASONE/VILANTEROL 1 EACH BLST.W.DEV INH SCH (08:04)
[2018-12-28] MEDS: OMEGA-3 FATTY ACIDS/FISH OIL CAPSULE PO SCH (08:04)
[2018-12-28] MEDS: ASPIRIN 325 MG TABLET PO SCH (08:04)
[2018-12-28] MEDS: FEXOFENADINE HCL 180 MG TABLET PO SCH (08:04)
[2018-12-28] MEDS: CHOLECALCIFEROL 1,000 UNIT TABLET PO SCH (08:04)
[2018-12-28] MEDS: LEVETIRACETAM 500 MG TABLET PO SCH ×2 (08:04→20:43)
[2018-12-28] MEDS: DOCUSATE SODIUM 100 MG CAPSULE PO SCH ×2 (08:05→18:00)
[2018-12-28] MEDS: FAMOTIDINE 20 MG TABLET PO SCH (08:05)
[2018-12-28] MEDS: CYANOCOBALAMIN 1,000 MCG TABLET PO SCH (08:05)
[2018-12-28] MEDS: BACITRACIN ZINC OINT 15 GM TUBE TOP SCH ×2 (08:08→18:00)
[2018-12-28] MEDS: OXYCODONE HCL 20 MG TAB.SR.12H PO SCH ×2 (09:17→20:47)
[2018-12-28] MEDS: Z GUARD REMEDY PASTE 57 GM TUBE TOP SCH ×2 (09:18→20:47)
[2018-12-28 16:53] VITALS: BP 123/69
--- NOTE | 2018-12-28 19:27 | NUR ---
Patient is A&O x4, able to express needs verbally. Breathing is even and unlabored. No acute distress. VS taken and stable. Pt. S/P right knee orif; Right leg still noted with swelling. PRN pain medication administered as ordered and effective. Pt. on PT/OT services. Due medications administered and tolerated well. Patient complained of pain on right chest (under right breast), informed MD and with an order for chest X-ray and NEGATIVE. Pt. also visited by primary MD with an order for DUPLEX ULTRASOUND FOR RIGHT LEG R/U DVT placed order. Needs met, no complains of pain at this time, safety measures in place, call light left at bed side, endorsed to next shift and will continue with care.
[2018-12-28 20:00] VITALS: BP 134/76
[2018-12-28] MEDS: METHOCARBAMOL 500 MG TABLET PO PRN (23:01)
--- NOTE | 2018-12-29 04:48 | NUR ---
Resting in bed at beginning of shift. VSS. Needs attended. S/P Right knee ORIF. Right knee dressing clean dry and intact. On pain management. Patient on Oxy 20mg q12hrs scheduled. Tolerated well. No ill effects noted. Oxy IR for breakthrough pain. Ice packs to right leg. Will monitor patient. OOB to the BR with walker. Patient wears Rt cam boot when OOB. Needs attended. Siderails up for safety.
[2018-12-29] MEDS: OXYCODONE HCL 5 MG TABLET PO PRN ×2 (05:08→13:00)
[2018-12-29 05:37] VITALS: BP 109/73
[2018-12-29 07:40] VITALS: BP 113/76
[2018-12-29] MEDS: OMEGA-3 FATTY ACIDS/FISH OIL CAPSULE PO SCH (09:00)
[2018-12-29] MEDS: FEXOFENADINE HCL 180 MG TABLET PO SCH (09:00)
[2018-12-29] MEDS: CHOLECALCIFEROL 1,000 UNIT TABLET PO SCH (09:00)
[2018-12-29] MEDS: DOCUSATE SODIUM 100 MG CAPSULE PO SCH ×2 (09:00→16:22)
[2018-12-29] MEDS: LEVETIRACETAM 500 MG TABLET PO SCH ×2 (09:00→21:09)
[2018-12-29] MEDS: CYANOCOBALAMIN 1,000 MCG TABLET PO SCH (09:00)
[2018-12-29] MEDS: OXYCODONE HCL 20 MG TAB.SR.12H PO SCH ×2 (09:02→21:09)
[2018-12-29] MEDS: FLUTICASONE/VILANTEROL 1 EACH BLST.W.DEV INH SCH (09:02)
[2018-12-29] MEDS: FAMOTIDINE 20 MG TABLET PO SCH (09:03)
[2018-12-29] MEDS: Z GUARD REMEDY PASTE 57 GM TUBE TOP PRN ×2 (09:04→09:07)
[2018-12-29] MEDS: BACITRACIN ZINC OINT 15 GM TUBE TOP SCH ×2 (09:14→16:24)
[2018-12-29] MEDS: Z GUARD REMEDY PASTE 57 GM TUBE TOP SCH ×2 (09:15→21:00)
[2018-12-29] MEDS: ASPIRIN 325 MG TABLET PO SCH (10:08)
[2018-12-29 16:15] VITALS: BP 129/57
[2018-12-29] MEDS: ACETAMINOPHEN 325 MG TABLET PO PRN (16:22)
[2018-12-29 19:50] VITALS: BP 112/58
--- NOTE | 2018-12-29 20:20 | NUR ---
Pt in stable condition, family is by the beside. c/o moderate pain. No urgent needs cristina
[2018-12-29] MEDS: METHOCARBAMOL 500 MG TABLET PO PRN (23:02)
[2018-12-30 04:52] VITALS: BP 102/59
[2018-12-30] MEDS: OXYCODONE HCL 5 MG TABLET PO PRN ×2 (05:09→13:40)
--- NOTE | 2018-12-30 05:45 | NUR ---
pt in stable condition, pt able to sleep during shift. No fever, no nausea and no vomiting.
[2018-12-30 07:55] VITALS: BP 119/79
[2018-12-30] MEDS: ASPIRIN 325 MG TABLET PO SCH (08:54)
[2018-12-30] MEDS: CHOLECALCIFEROL 1,000 UNIT TABLET PO SCH (08:54)
[2018-12-30] MEDS: OMEGA-3 FATTY ACIDS/FISH OIL CAPSULE PO SCH (08:54)
[2018-12-30] MEDS: FEXOFENADINE HCL 180 MG TABLET PO SCH (08:54)
[2018-12-30] MEDS: OXYCODONE HCL 20 MG TAB.SR.12H PO SCH ×2 (08:55→20:43)
[2018-12-30] MEDS: DOCUSATE SODIUM 100 MG CAPSULE PO SCH ×2 (08:55→17:11)
[2018-12-30] MEDS: FAMOTIDINE 20 MG TABLET PO SCH (08:55)
[2018-12-30] MEDS: CYANOCOBALAMIN 1,000 MCG TABLET PO SCH (08:55)
[2018-12-30] MEDS: FLUTICASONE/VILANTEROL 1 EACH BLST.W.DEV INH SCH (08:56)
[2018-12-30] MEDS: BACITRACIN ZINC OINT 15 GM TUBE TOP SCH ×2 (08:57→17:12)
[2018-12-30] MEDS: Z GUARD REMEDY PASTE 57 GM TUBE TOP SCH ×2 (08:57→20:41)
[2018-12-30] MEDS: LEVETIRACETAM 500 MG TABLET PO SCH ×2 (09:09→20:43)
--- NOTE | 2018-12-30 15:12 | NUR ---
INTERDISCIPLINARY TEAM CONFERENCE
--- NOTE | 2018-12-30 19:30 | NUR ---
Patient A&O x4; No acute distress noted; able to express needs. Needs met. All due medications administered as ordered and scheduled and effective. Safety measures in place, call light left at bed side. Endorsed to next shift and will continue with care.
[2018-12-30] MEDS: ACETAMINOPHEN 325 MG TABLET PO PRN (19:49)
[2018-12-30 20:40] VITALS: BP 116/72
[2018-12-30] MEDS: METHOCARBAMOL 500 MG TABLET PO PRN (21:51)
--- NOTE | 2018-12-31 04:43 | NUR ---
Patient was stable during the shift and had a good sleep last night. Not in acute distress or SOB. On room air. VS stable. Pain assessed and reassessed after pain medication. All due medications given and well tolerated. Asked for Robaxin 500 mg @2200. Provided ice bags for her pain. Assisted her to the bathroom as needed. All needs attended promptly. Physical assessment done. Fall prevention observed. Safety measures maintained. Bed in low and lock position, alarm on, side rails up x2 for safety. Call light and frequently used items within reach. Continue to monitor and will endorse to the day shift nurse accordingly.
[2018-12-31] MEDS: ACETAMINOPHEN 325 MG TABLET PO PRN (05:10)
[2018-12-31 05:43] VITALS: BP 102/46
[2018-12-31 08:00] VITALS: BP 102/54
[2018-12-31] MEDS: DOCUSATE SODIUM 100 MG CAPSULE PO SCH ×2 (08:16→16:47)
[2018-12-31] MEDS: LEVETIRACETAM 500 MG TABLET PO SCH ×2 (08:16→21:12)
[2018-12-31] MEDS: CHOLECALCIFEROL 1,000 UNIT TABLET PO SCH (08:16)
[2018-12-31] MEDS: FAMOTIDINE 20 MG TABLET PO SCH (08:16)
[2018-12-31] MEDS: OMEGA-3 FATTY ACIDS/FISH OIL CAPSULE PO SCH (08:16)
[2018-12-31] MEDS: FEXOFENADINE HCL 180 MG TABLET PO SCH (08:16)
[2018-12-31] MEDS: CYANOCOBALAMIN 1,000 MCG TABLET PO SCH (08:17)
[2018-12-31] MEDS: ASPIRIN 325 MG TABLET PO SCH (08:18)
[2018-12-31] MEDS: Z GUARD REMEDY PASTE 57 GM TUBE TOP SCH ×2 (08:18→21:13)
[2018-12-31] MEDS: FLUTICASONE/VILANTEROL 1 EACH BLST.W.DEV INH SCH (08:18)
[2018-12-31] MEDS: OXYCODONE HCL 20 MG TAB.SR.12H PO SCH ×2 (08:19→21:13)
--- NOTE | 2018-12-31 09:00 | NUR ---
Patient awake, alert, oriented x 4 not in any form of distress. No complain of pain at this time. Due medications administered and tolerated well. Assisted with her needs. Call light and frequently used items placed within reach.
[2018-12-31] MEDS: BACITRACIN ZINC OINT 15 GM TUBE TOP SCH ×2 (10:05→16:48)
[2018-12-31] MEDS: OXYCODONE HCL 5 MG TABLET PO PRN ×2 (13:52→22:40)
[2018-12-31 16:41] VITALS: BP 125/70
[2018-12-31] MEDS: METHOCARBAMOL 500 MG TABLET PO PRN (16:47)
[2018-12-31 19:35] VITALS: BP 127/57
--- NOTE | 2018-12-31 21:35 | NUR ---
Received pt resting in bed and watching tv. AAO x4. Family at bedside. No acute distress noted. C/o 7/10 pain on the right knee. Routine pain med and other due med given as ordered. Wound care and dressing care rendered. Surgical sites healing well, no s/s of infection. Safety measures maintained. Call light and personal belongings within reach. Will continue to monitor.
[2019-01-01] MEDS: METHOCARBAMOL 500 MG TABLET PO PRN ×3 (00:53→17:24)
[2019-01-01 04:50] VITALS: BP 101/57
[2019-01-01] MEDS: OXYCODONE HCL 5 MG TABLET PO PRN ×3 (05:42→17:23)
[2019-01-01 08:12] VITALS: BP 112/64
[2019-01-01] MEDS: DOCUSATE SODIUM 100 MG CAPSULE PO SCH ×2 (08:31→17:23)
[2019-01-01] MEDS: FAMOTIDINE 20 MG TABLET PO SCH (08:31)
[2019-01-01] MEDS: OMEGA-3 FATTY ACIDS/FISH OIL CAPSULE PO SCH (08:31)
[2019-01-01] MEDS: CYANOCOBALAMIN 1,000 MCG TABLET PO SCH (08:31)
[2019-01-01] MEDS: FEXOFENADINE HCL 180 MG TABLET PO SCH (08:31)
[2019-01-01] MEDS: LEVETIRACETAM 500 MG TABLET PO SCH ×2 (08:31→20:18)
[2019-01-01] MEDS: CHOLECALCIFEROL 1,000 UNIT TABLET PO SCH (08:31)
[2019-01-01] MEDS: ASPIRIN 325 MG TABLET PO SCH (08:31)
[2019-01-01] MEDS: OXYCODONE HCL 20 MG TAB.SR.12H PO SCH ×2 (08:32→20:18)
[2019-01-01] MEDS: FLUTICASONE/VILANTEROL 1 EACH BLST.W.DEV INH SCH (08:32)
[2019-01-01] MEDS: BACITRACIN ZINC OINT 15 GM TUBE TOP SCH ×2 (08:37→17:26)
[2019-01-01] MEDS: Z GUARD REMEDY PASTE 57 GM TUBE TOP SCH ×2 (08:39→20:19)
--- NOTE | 2019-01-01 09:05 | NUR ---
Patient noted resting in bed, complaints of back pain, gave scheduled OxyContin SR and Robaxin, patient noted using ice and alternating with heat, no signs of distress noted, call light in reach, bed locked and in lowest position, all needs met at this time
[2019-01-01] MEDS: ACETAMINOPHEN 325 MG TABLET PO PRN (19:33)
--- NOTE | 2019-01-01 19:34 | NUR ---
Tylenol 650 mg given as needed for complaint of headache. Will monitor.
--- NOTE | 2019-01-01 19:35 | NUR ---
Awake, family at bedside. Still complaining of mild headache at this time after Tylenol was given earlier. Non pharmacologic measures encouraged to relieve headache. Safety measures and fall precaution maintained. Continue care as planned.
[2019-01-01 21:10] VITALS: BP 123/66
[2019-01-01 21:13] VITALS: BP 123/66
[2019-01-02 04:10] VITALS: BP 101/61
[2019-01-02] MEDS: ACETAMINOPHEN 325 MG TABLET PO PRN ×2 (04:15→19:48)
--- NOTE | 2019-01-02 06:12 | NUR ---
Shift End Report: Vs stable. Medicated twice with Tylenol for complaint of discomforts with relief. No further complaint presented. Slept good. No fall/injury. All needs attended and met. No significant event reported all night. Continue current rehab plan of care.
--- NOTE | 2019-01-02 07:47 | NUR ---
Patient noted resting in bed, complaints of hip pain, patient noted using ice, will give scheduled pain medication, no signs of distress noted, call light in reach, bed locked and in lowest position, all needs met at this time
[2019-01-02 08:00] VITALS: BP 114/50
[2019-01-02] MEDS: LEVETIRACETAM 500 MG TABLET PO SCH ×2 (08:51→21:03)
[2019-01-02] MEDS: CHOLECALCIFEROL 1,000 UNIT TABLET PO SCH (08:51)
[2019-01-02] MEDS: OMEGA-3 FATTY ACIDS/FISH OIL CAPSULE PO SCH (08:51)
[2019-01-02] MEDS: FEXOFENADINE HCL 180 MG TABLET PO SCH (08:51)
[2019-01-02] MEDS: METHOCARBAMOL 500 MG TABLET PO PRN ×2 (08:51→23:45)
[2019-01-02] MEDS: FAMOTIDINE 20 MG TABLET PO SCH (08:51)
[2019-01-02] MEDS: ASPIRIN 325 MG TABLET PO SCH (08:51)
[2019-01-02] MEDS: DOCUSATE SODIUM 100 MG CAPSULE PO SCH ×2 (08:51→17:27)
[2019-01-02] MEDS: CYANOCOBALAMIN 1,000 MCG TABLET PO SCH (08:51)
[2019-01-02] MEDS: BACITRACIN ZINC OINT 15 GM TUBE TOP SCH ×2 (08:52→17:28)
[2019-01-02] MEDS: FLUTICASONE/VILANTEROL 1 EACH BLST.W.DEV INH SCH (08:52)
[2019-01-02] MEDS: OXYCODONE HCL 20 MG TAB.SR.12H PO SCH ×2 (08:52→21:03)
[2019-01-02] MEDS: Z GUARD REMEDY PASTE 57 GM TUBE TOP SCH ×2 (08:57→21:04)
[2019-01-02] MEDS: OXYCODONE HCL 5 MG TABLET PO PRN ×2 (12:46→17:28)
[2019-01-02 16:18] VITALS: BP 124/69
--- NOTE | 2019-01-02 19:35 | NUR ---
Awake during initial rounds, in bed, family at bedside. No complaint presented at this time. Safety measure and fall precaution maintained, Continue care as planned.
--- NOTE | 2019-01-02 19:49 | NUR ---
Complaining of right knee pain in scale of 4/10, medicated with Tylenol 650 mg per pt choice at this time. Will monitor.
[2019-01-02 20:28] VITALS: BP 119/73
--- NOTE | 2019-01-02 22:35 | NUR ---
Wound care done on LUE and RLE, tolerated well. HS snack provided after.
[2019-01-03] MEDS: ACETAMINOPHEN 325 MG TABLET PO PRN ×2 (04:52→11:29)
--- NOTE | 2019-01-03 05:51 | NUR ---
Shift End Report: Vs stable. Medicated twice with Tylenol for complaint of discomforts or mild pain on right knee. Ice pack inplace to affected area to relieve pain and swelling. No further complaint presented. All needs attended and met. No significant event reported all night. Continue care as planned.
[2019-01-03 05:55] VITALS: BP 106/63
[2019-01-03 07:48] VITALS: BP 108/59
[2019-01-03] MEDS: DOCUSATE SODIUM 100 MG CAPSULE PO SCH ×2 (08:26→16:42)
[2019-01-03] MEDS: FAMOTIDINE 20 MG TABLET PO SCH (08:26)
[2019-01-03] MEDS: CHOLECALCIFEROL 1,000 UNIT TABLET PO SCH (08:27)
[2019-01-03] MEDS: CYANOCOBALAMIN 1,000 MCG TABLET PO SCH (08:29)
[2019-01-03] MEDS: LEVETIRACETAM 500 MG TABLET PO SCH (08:30)
[2019-01-03] MEDS: OXYCODONE HCL 20 MG TAB.SR.12H PO SCH (08:30)
[2019-01-03] MEDS: ASPIRIN 325 MG TABLET PO SCH (08:31)
[2019-01-03] MEDS: OMEGA-3 FATTY ACIDS/FISH OIL CAPSULE PO SCH (08:31)
[2019-01-03] MEDS: FEXOFENADINE HCL 180 MG TABLET PO SCH (08:31)
[2019-01-03] MEDS: FLUTICASONE/VILANTEROL 1 EACH BLST.W.DEV INH SCH (08:32)
[2019-01-03] MEDS: BACITRACIN ZINC OINT 15 GM TUBE TOP SCH ×2 (08:34→16:43)
[2019-01-03] MEDS: Z GUARD REMEDY PASTE 57 GM TUBE TOP SCH (08:36)
--- NOTE | 2019-01-03 08:45 | NUR ---
Patient awake, alert, oriented x 3, no complain of pain or discomfort, no SOB. Morning due medications administered and tolerated well. Patient informed of planned discharge for the day and is aware. Assisted with her needs. Call light and frequently used items placed within reach.
[2019-01-03] MEDS: METHOCARBAMOL 500 MG TABLET PO PRN (15:10)
[2019-01-03 15:44] VITALS: BP 134/76
--- NOTE | 2019-01-03 18:00 | NUR ---
Discharge instructions provided to the patient with verbalized understanding. Discharge papers signed by and given to the patient. Mother at bedside. All belongings well accounted for. Patient remains alert, not in any distress. She denies any pain or discomfort at this time. Discharge prescription discussed and provided to the patient. Vital signs stable.
--- NOTE | 2019-01-03 19:22 | NUR ---
Patient picked up by [facility]" ambulance, transferred via gurney accompanied by mother. Patient remains stable and no complain of any pain.
--- NOTE | 2019-01-04 10:39 | NUR ---
Social Work Note: Tunnel Drier Operator met with patient and patient's mother - Nidia Hurd, at bedside. Patient informed she will be discharged soon and discussed issues with insurance coverage of DME. Tunnel Drier Operator provided her with referrals to non-profit organizations that provide free DME loans: [employer] [[address] [place] [address]; ] and [employer] [Phone. [phone]].
== END 2019-01-03 19:22 | disposition home health service (06) | DRG 862 ==
PROVIDERS: ADMIT Physical Medicine & Rehabilitation Pain Medicine; ATTEND Physical Medicine & Rehabilitation Pain Medicine
DX: S02.19XD Other fracture of base of skull, subsequent encounter for fracture with routine healing (principal); J90 Pleural effusion, not elsewhere classified; E44.0 Moderate protein-calorie malnutrition; G93.89 Other specified disorders of brain; E66.01 Morbid (severe) obesity due to excess calories; S06.5X9D Traumatic subdural hemorrhage with loss of consciousness of unspecified duration, subsequent encounter; S06.6X9D Traumatic subarachnoid hemorrhage with loss of consciousness of unspecified duration, subsequent encounter; S22.42XD Multiple fractures of ribs, left side, subsequent encounter for fracture with routine healing; S27.0XXD Traumatic pneumothorax, subsequent encounter; S82.191D Other fracture of upper end of right tibia, subsequent encounter for closed fracture with routine healing; S82.831D Other fracture of upper and lower end of right fibula, subsequent encounter for closed fracture with routine healing; S00.03XD Contusion of scalp, subsequent encounter; S30.1XXD Contusion of abdominal wall, subsequent encounter; S40.812D Abrasion of left upper arm, subsequent encounter; V03.10XD Pedestrian on foot injured in collision with car, pick-up truck or van in traffic accident, subsequent encounter; Z68.41 Body mass index [BMI] 40.0-44.9, adult; J45.909 Unspecified asthma, uncomplicated; K21.9 Gastro-esophageal reflux disease without esophagitis; E78.1 Pure hyperglyceridemia; J98.2 Interstitial emphysema; R26.9 Unspecified abnormalities of gait and mobility; R73.9 Hyperglycemia, unspecified; Z88.0 Allergy status to penicillin
CPT/HCPCS: 36415; 71046; 73590; 83735; 84100; 84443; 85025; A4663; J3590; Q0162

== ENCOUNTER 2019-01-18 21:01 | Emergency (ER) | payer OTHER ==
[~2019-01-18] VITALS: Ht 167.6 cm; Wt 117.5 kg
[~2019-01-18 21:01] MED LIST changes: +ALBU8HFA4 INH; +ASPI-612 PO; -AZIT250T13 PO; +BACI3.5O23 TP; +CHOL10002 PO; +CYAN-51 PO; +DOCU100C36 PO; -DULO30CA2 PO; -HYDR-3326 PO; +LEVE500T9 PO; -LORA1TAB PO; -METH4TAB3 PO; +METH500T6 PO; +OMEG-49 PO; +ONDA4TAB11 PO; +OXYC10SY PO; -VORT20TA PO
[2019-01-18] MEDS ORDERED: FUROSEMIDE 20 MG TABLET PO ONE (21:45)
[2019-01-18] MEDS ORDERED: FUROSEMIDE 20 MG TABLET ONE (21:46)
[2019-01-18 22:01] LABS: CREATININE 0.8 mg/dL (0.6-1.3); POTASSIUM 3.7 mmol/L (3.5-5.1)
[2019-01-18] MEDS ORDERED: POTASSIUM CHLORIDE 20 MEQ TAB.PRT.SR PO ONE (22:15)
[2019-01-18] MEDS ORDERED: POTASSIUM CHLORIDE 20 MEQ TAB.PRT.SR ONE (22:30)
[2019-01-18 22:38] VITALS: BP 134/67
== END 2019-01-18 22:40 | disposition home or self-care (01) ==
LOC: ER 21:03
DX: R60.9 Edema, unspecified (principal); J45.909 Unspecified asthma, uncomplicated; K21.9 Gastro-esophageal reflux disease without esophagitis; F32.9 Major depressive disorder, single episode, unspecified; F41.9 Anxiety disorder, unspecified; Z88.0 Allergy status to penicillin; Z79.899 Other long term (current) drug therapy; Z79.82 Long term (current) use of aspirin; Z79.891 Long term (current) use of opiate analgesic
CPT/HCPCS: 36415; A4663

== ENCOUNTER 2022-12-11 10:32 | Emergency (ER) | payer BC, OTHER ==
[~2022-12-11] VITALS: Ht 167.6 cm; Wt 117.9 kg
[~2022-12-11 10:32] MED LIST changes: +METH-806 PO; -METH500T6 PO
[2022-12-11] MEDS ORDERED: DICY10CA13 PO (10:49)
[2022-12-11] MEDS ORDERED: PANT40TA49 PO (10:49)
[2022-12-11 12:53] VITALS: BP 130/74; O2SAT 98
== END 2022-12-11 12:54 | disposition home or self-care (01) ==
LOC: ER 10:32
DX: M79.604 Pain in right leg (principal); J45.909 Unspecified asthma, uncomplicated; K21.9 Gastro-esophageal reflux disease without esophagitis; Z88.0 Allergy status to penicillin; Z79.899 Other long term (current) drug therapy; Z79.82 Long term (current) use of aspirin
CPT/HCPCS: A4663